=== PATIENT | female | born 1960 | race Caucasian/White ===

== ENCOUNTER 2019-11-29 12:49 | Outpatient (CLI) | payer BC, SELFPAY ==
--- NOTE | ~2019-11-29 | US_ITS ---
EXAMINATION: US soft tissue UE LT DATE: 11/29/2019 13:41 INDICATION: Left forearm lump. TECHNIQUE: Multiple grayscale and Doppler ultrasound images of the left forearm were obtained. COMPARISON: None FINDINGS: In the radial aspect of the left forearm, there is a 1.7 x 0.5 x 2.2 cm hyperechoic subcuta neous mass. IMPRESSION: 1. 2.2 cm subcutaneous mass in the radial aspect of the left forearm, most likely inflammation or a l ipoma. Reviewed, dictated and finalized at location A. UCT TEST ENGINEER IMPRESSION: 1. 2.2 cm subcutaneous mass in the radial aspect of the left forearm, most like ly inflammation or a lipoma.
== END 2019-11-29 12:50 | disposition home or self-care (01) ==
PROVIDERS: PCP Internal Medicine; Visit Provider Nurse Practitioner
DX: R22.30 Localized swelling, mass and lump, unspecified upper limb (principal)
CPT/HCPCS: 76882

== ENCOUNTER 2022-01-29 00:04 | Day surgery (SDC) | payer BC, SELFPAY ==
[2022-01-14 14:29] VITALS: BMI 24.5
[2022-01-29 07:11] VITALS: BP 138/93; PULSE 89; RESP 16; TEMP 36.2; O2SAT 100
[2022-01-29] MEDS: LACTATED RINGERS 1,000 ML 150 ML IV CONT (07:25)
--- NOTE | 2022-01-29 08:15 | WPDANESEPPF ---
Anes - Initial Pre Proc Eval Procedure: Operation Date: 01/29/22 08:30 Proposed Procedures p Screening Colonoscopy - Russel Carolina MD Date/Time: 01/29/22 08:15 Surgeon: Russel Carolina MD Pre Op Diagnosis: neoplasm screening Patient Data Age: 61 Gender: F Height: 1.73 m Weight: 70.8 kg Last Vital Signs Temp 97.2 F L 01/29/22 07:11 Pulse 89 01/29/22 07:11 Resp 16 01/29/22 07:11 BP 138/93 H 01/29/22 07:11 Pulse Ox 100 01/29/22 07:11 Allergies Allergy/AdvReac Type Severity Reaction Status Date / Time sulfamethoxazole Allergy Severe HIVES/DIFF Verified 01/29/22 07:10 BREATHING/NAUSEA ciprofloxacin Allergy Unknown Nausea Verified 01/29/22 07:10 sulfamethizole Allergy Unknown Nausea Verified 01/29/22 07:10 trimethoprim Allergy Unknown Nausea Verified 01/29/22 07:10 Home Medications Medication Instructions Recorded Confirmed Type sxpsoyfwxmqt-bbjhpbra-pmclnd tablet 1 tablet PO DAILY 11/01/19 01/14/22 History thyroid (pork) 60 mg tablet 60 mg PO DAILY #90 tablet 11/30/21 01/14/22 Rx denosumab [Prolia] 60 mg SUBCUT 01/14/22 History Patient hx anesthesia problems: none Family hx anesthesia problems: none Results Review: All pre-operative results and documents have been reviewed as part of the pre-operative evaluation. [facility] Past Medical History Medical History (Updated 11/29/21 @ 14:52 by Kelly Stiles NP) Cyst of breast Removed: benign H/O human papillomavirus infection History of fracture Hypothyroidism Osteoporosis Surgical History Surgical History H/O laparoscopy 1992 History of appendectomy 1969 Family History Family History Sibling Hypertension History of heart artery stent Father Heart disease Mother Pacemaker Social History Social History Smoking status: Never smoker Alcohol intake: current Alcohol use details: 2 per month Living arrangements: alone Spiritual care concerns: No Anes - Eval Final PreProcedure Day of Procedure 01/29/22 08:15 Patient weight: normal Heart: regular rate and rhythm Lungs: clear to auscultation Airway: Mallampati scale class II Neurological: alert and oriented Last oral intake: >/= 8 hours ASA classification: II Emergent: no Anesthetic plan: proceed Anesthesia type and monitoring: general GIVS and standard monitoring Results Review: All pre-operative results and documents have been reviewed as part of the pre-operative evaluation. Informed Consent: The patient's anesthetic plan and its attendant risks and benefits were discussed with the patient/family/POA. Questions were solicited and answers provided to the satisfaction of the patient/family/POA.
--- NOTE | 2022-01-29 08:19 | PM.HPGS ---
History of Present Illness History of Present Illness Consent: Risks, benefits, and alternatives have been discussed and questions answered. Patient agrees to proceed with procedure. Chief complaint: neoplasm screening Narrative: Clarisse Wilder is a 61 year old female here for screening colonoscopy, last one 10 years ago. Review of Systems Constitutional: Constitutional: Denies headache(s) and Denies weakness Eyes: Eyes: Denies blurry vision ENT: Reports Normal hearing present, Denies headache(s) and Denies neck pain Cardiovascular: Cardiovascular: Denies chest pain and Denies dyspnea Respiratory: Respiratory: Denies dyspnea Gastrointestinal: Gastrointestinal: Reports no additional gastrointestinal complaints Genitourinary: Genitourinary: Denies dysuria Musculoskeletal: Musculoskeletal: Denies neck pain Integumentary/Breasts: Skin/Breast: Denies dry skin Neurologic: Reports Normal hearing present, Denies headache(s) and Denies weakness Psychiatric: Psychiatric: Denies anxiety Endocrine: Endocrine: Denies change in body appearance Hematologic/Lymphatic: Hematologic/Lymphatic: Denies easy bleeding Allergic/Immunologic: Allergic/Immunologic: Denies urticaria PMFSH Past Medical History Medical History (Updated 11/29/21 @ 14:52 by Kelly Stiles NP) Cyst of breast Removed: benign H/O human papillomavirus infection History of fracture Hypothyroidism Osteoporosis Surgical History Surgical History H/O laparoscopy 1991 History of appendectomy 1968 Family History Family History Sibling Hypertension History of heart artery stent Father Heart disease Mother Pacemaker Social History Social History Smoking status: Never smoker Alcohol intake: current Alcohol use details: 2 per month Living arrangements: alone Spiritual care concerns: No Meds Home Medications and Allergies Home Medications Medication Instructions Recorded Confirmed Type rieolzmdtfbf-kruwpbhx-mpbicq tablet 1 tablet PO DAILY 11/01/19 01/14/22 History thyroid (pork) 60 mg tablet 60 mg PO DAILY #90 tablet 11/30/21 01/14/22 Rx denosumab [Prolia] 60 mg SUBCUT 01/14/22 History Allergies Allergy/AdvReac Type Severity Reaction Status Date / Time sulfamethoxazole Allergy Severe HIVES/DIFF Verified 01/29/22 07:10 BREATHING/NAUSEA ciprofloxacin Allergy Unknown Nausea Verified 01/29/22 07:10 sulfamethizole Allergy Unknown Nausea Verified 01/29/22 07:10 trimethoprim Allergy Unknown Nausea Verified 01/29/22 07:10 Vital Signs Vital Signs - 24 hr 01/29/22 07:11 Temperature 97.2 F L Pulse Rate 89 Respiratory Rate 16 Blood Pressure 138/93 H Pulse Oximetry 100 Exam Const: General: comfortable and no acute distress HENMT: General nose exam: Normal nares present Eyes: General: appearance normal, both eyes and all related structures Neck: Neck: no JVD Resp: Auscultation: clear to auscultation bilaterally Cardio: Rate: regular rate Rhythm: regular rhythm GI: Inspection: non-distended GI Palp: Yes Soft to palpation Skin: General skin exam: normal color Neuro: General: gait normal Speech: normal speech Extrem: General: normal to inspection Psych: Mental Status: mental status grossly normal Assessment and Plan Assessment and plan (1) Screening for colon cancer: Code(s): Z12.11 - Encounter for screening for malignant neoplasm of colon Status: Acute Assessment and Plan: colonoscopy
[2022-01-29 08:48] VITALS: BP 99/65; PULSE 78; RESP 14; O2SAT 99
[2022-01-29 08:58] VITALS: BP 104/66; PULSE 75; RESP 13; O2SAT 100
[2022-01-29 09:08] VITALS: BP 123/78; PULSE 68; RESP 13; O2SAT 99
== END 2022-01-29 09:14 | disposition home or self-care (01) ==
PROVIDERS: PCP Internal Medicine; Visit Provider Internal Medicine Gastroenterology
PROC: 0DJD8ZZ Inspection of Lower Intestinal Tract, Via Natural or Artificial Opening Endoscopic (ICD-10-PCS; CPT 45378; principal; 2022-01-29 08:30)
DX: Z12.11 Encounter for screening for malignant neoplasm of colon (principal); D12.5 Benign neoplasm of sigmoid colon; K64.8 Other hemorrhoids; E03.9 Hypothyroidism, unspecified; M81.0 Age-related osteoporosis without current pathological fracture
CPT/HCPCS: 45380; 88305; J2704; J7120

== ENCOUNTER 2022-04-03 11:17 | Outpatient (CLI) | payer BC, SELFPAY ==
--- NOTE | ~2022-04-03 | NM_ITS ---
EXAMINATION: NM hepatobiliary wo pharm DATE: 04/03/2022 15:54 CDT INDICATION: Right upper quadrant pain. Evaluate gallbladder. COMPARISON: None. TECHNIQUE: 5.1 mCi Tc-99m mebrofenin (Choletec) was administered intravenously. Scintigraphic images of the abdomen were obtained for one hour. At the 1 hour time point, the patient drank 8 oz Ensure, and imaging was continued for 60 minutes. Gallbladder ejection fraction was calculated by the technol ogjose. FINDINGS: There is normal clearance of radiotracer from the blood pool. There is homogeneous tracer u ptake by the liver. Activity progresses to the bowel and gallbladder. The gallbladder ejection fract ion is 28%. Note that with this technique, normal GBEF >= 33%. IMPRESSION: 1. Mildly diminished gallbladder ejection fraction which can be associated with gallbladder dysfunct ion or chronic cholecystitis in the appropriate clinical setting. Reviewed, dictated and finalized at location A. IMPRESSION: 1. Mildly diminished gallbladder ejection fraction which can be associated wit h gallbladder dysfunction or chronic cholecystitis in the appropriate clinical setting.
== END 2022-04-03 11:18 | disposition home or self-care (01) ==
LOC: ANHIMG 11:18
PROVIDERS: PCP Internal Medicine; Visit Provider Internal Medicine
DX: R10.9 Unspecified abdominal pain (principal)
CPT/HCPCS: 78226; A9537

== ENCOUNTER 2022-04-04 09:23 | Outpatient (CLI) | payer BC, SELFPAY ==
--- NOTE | ~2022-04-04 | US_ITS ---
US abdomen complete DATE: 04/04/2022 10:41 INDICATION: Abdominal pain TECHNIQUE: Real-time imaging and Doppler analysis COMPARISON: 04/03/2022 radionuclide hepatobiliary scan FINDINGS: Normal caliber of the abdominal aorta. The inferior vena cava is unremarkable. No hepatic space-occupying mass lesion is evident. Normal hepatopedal portal venous flow direction. No gallstones or gallbladder wall thickening. Negative sonographic Burton's sign. The common bile tarsha t measures 1.2 mm, normal. No renal mass lesion or hydronephrosis is evident. Normal splenic size. 1.4 x 6.5 x 1.2 cm circumscribed parallel hyperechoic lesion of the anterior abdominal wall in the ar ea of complaint of superficial lump, likely a benign lipoma. IMPRESSION: No significant abnormality Reviewed, dictated and finalized at Location A. Reviewed, dictated and finalized at location A. IMPRESSION: No significant abnormality
== END 2022-04-04 09:24 | disposition home or self-care (01) ==
PROVIDERS: PCP Internal Medicine; Visit Provider Nurse Practitioner
DX: R10.9 Unspecified abdominal pain (principal); R22.9 Localized swelling, mass and lump, unspecified
CPT/HCPCS: 76700

== ENCOUNTER → 2023-05-08 09:08 | Outpatient (CLI) | payer BC, SELFPAY ==
--- NOTE | ~2023-05-08 | US_ITS ---
EXAMINATION: US renal BI DATE: 05/08/2023 09:27 INDICATION: 1 cm probable renal cyst on prior CT. TECHNIQUE: Multiple ultrasound grayscale images of the kidneys were obtained. COMPARISON: Ultrasound dated 04/14/2022 FINDINGS: The right kidney measures 11.0 x 3.5 x 7.2 cm. The left kidney measures 10.4 x 4.9 x 6.6 cm. The kidn eys demonstrate normal echogenicity. There is no hydronephrosis in either kidney. No stones identifi ed. The bladder is normal. IMPRESSION: 1. Normal kidneys without hydronephrosis. Reported renal lesion is not identified. Recommend further evaluation with pre and postcontrast MRI or CT and correlation with any prior imaging. Reviewed, dictated and finalized at location L. IMPRESSION: 1. Normal kidneys without hydronephrosis. Reported renal lesion is not identif ied. Recommend further evaluation with pre and postcontrast MRI or CT and corre lation with any prior imaging.
== END ==
PROVIDERS: PCP Nurse Practitioner; Visit Provider Nurse Practitioner
DX: R93.422 Abnormal radiologic findings on diagnostic imaging of left kidney (principal); R93.421 Abnormal radiologic findings on diagnostic imaging of right kidney
CPT/HCPCS: 76775

== ENCOUNTER 2023-05-15 00:27 | Day surgery (SDC) | payer BC, SELFPAY ==
[2023-05-07 14:31] VITALS: BMI 22.8
--- NOTE | 2023-05-07 14:52 | SUR.PREOP ---
Report to the Outpatient Waiting Room, entrance under the green pavilion located off [facility], at time 1000 on date 05/15/2023. Planned Procedure Time: 1200. Time changes happen often and if your time is changed the preop area will call you the afternoon before. - You and your visitor will be asked to self-screen and do not enter if you have any COVID symptoms. - A mask is optional within the hospital at this time. Patients may have clear liquids (water, carbonated beverages, clear teas, apple juice) until 3 hours prior to surgery with a maximum of 20 ounces. - No food from midnight until time of surgery - Infants may have breast milk until 4 hours before surgery, infant formula 6 hours prior to surgery. - Children will be allowed to drink immediately following surgery. If applicable, please bring a bottle or sippy cup to assist with drinking. Juice, water, soda, and popsicles are readily available. For infants on formula, please bring formula the day of surgery. Pacifiers are allowed. Take the following medications with a SIP of water the morning of surgery: levothyroxine DO NOT STOP ANY OF YOUR OTHER PRESCRIPTION MEDICATIONS PRIOR TO SURGERY ?EXCEPT THE FOLLOWING Medications to discontinue per physician vitamins- 3 days Date to take last dose 05/11/2023 Please no make-up, nail kiswahili, hairspray, perfume, deodorant, or body powder the day of surgery. No jewelry (including any body piercings) or valuables the day of surgery, leave them at home. Please take a shower or bath the morning of surgery with an antibacterial soap- Hibiclens. Wear comfortable, loose fitting clothing. Children are encouraged to wear pajamas. - Jewelry must be removed prior to entering the operating room. Rings and piercings that are not removed may be cut off. - The hospital will not accept responsibility for valuables. - Please leave all valuables, including medications, at home the day of surgery. If you are going home after surgery, a licensed over the road driver must drive you home. - NO public transportation without another adult if you receive anesthesia. - We recommend that an adult stay with you for 24 hours following discharge. - We also recommend that you do not drive, make important decision, drink alcoholic beverages, or take any drugs that were not prescribed by your health care provider for at least 24 hours after your discharge time. For Pediatric surgeries, we recommend two adults accompany the child home. Follow any additional instructions given to you from your surgeon. If you or anyone in your household have experienced Covid symptoms in the past week, please notify your surgeon or the nurse liaison at the phone number below for possible testing. Telephone instructions given to patient- Donna and asked if any additional questions and then verbalized understanding. Patient advised to call surgeon office or pre surgery nurse liaison [phone] if any additional questions.
--- NOTE | 2023-05-15 08:15 | PM.SD2 ---
Same Day Admit/Disch: HPI History of Present Illness Chief complaint: Subcutaneous mass abdominal wall Narrative: Clarisse Wilder is a 62 year old female who 1st noticed a supraumbilical subcutaneous mass back in March of 2022. This has gotten larger. She had an ultrasound which showed this was a 6.5 cm subcutaneous lipoma. Due to its position, it could also be a small hernia. She is taken to surgery now for excision of this subcutaneous mass or possibly repair of small ventral hernia. [facility] Past Medical History Medical History Cyst of breast Removed: benign H/O human papillomavirus infection History of fracture Hypothyroidism Osteoporosis Surgical History Surgical History H/O laparoscopy 1991 History of appendectomy 1968 Family History Family History Sibling Hypertension History of heart artery stent Father Heart disease Mother Pacemaker Social History Social History Smoking status: Never smoker Alcohol intake: current Alcohol use details: 1 per month Lack of Transportation: No Lack of Food: Never True Current Housing: I Have Housing Concerned About Future Housing: No Difficulty Paying Gas/Electric Bills: No Difficulty Paying for Meds: No Currently Unemployed: No Education: Bachelor's Degree Difficulty w/ Childcare or Family Care: No Living arrangements: alone Spiritual care concerns: No Same Day Admit/Disch: Med Pre-admit Medications Home Medications Medication Instructions Recorded Confirmed Type lqerfifenrdf-udxmsmzm-ufyyow 1 tablet PO DAILY 11/01/19 05/15/23 History tablet (Multivitamin 50 Plus tablet) denosumab 60 mg/mL subcutaneous See Rx Instructions .Route .COMPLEX 01/14/22 05/15/23 History syringe (Prolia) levothyroxine 88 mcg tablet 88 mcg PO DAILY #90 tabs 03/24/23 05/15/23 Rx oxycodone-acetaminophen 5 mg-325 0.5 - 1 tablet PO Q6H PRN pain #10 05/15/23 Rx mg tablet tabs Review of Systems Review of Systems All systems reviewed & are unremarkable except as noted in HPI and below (HPI and those items noted below) Constitutional Constitutional: Denies chills and Denies fever(s) Cardiovascular Cardiovascular: Denies chest pain, Denies diaphoresis, Denies dyspnea and Denies paroxysmal nocturnal dyspnea Respiratory Respiratory: Denies chest congestion, Denies cough and Denies dyspnea Integumentary/Breasts Skin/Breast: Denies lesions and Denies rash Exam Const: General: comfortable, no acute distress, alert and awake HENMT: Head: normocephalic and atraumatic Mouth: Yes Normal oral and palatal mucosa present Eyes: Conjunctivae: conjunctivae normal Pupils: Equal, round and reactive pupils present EOM: EOMs intact bilaterally Neck: Neck: normal visual inspection, no lymphadenopathy and nontender Resp: Effort & Inspection: normal respiratory effort Auscultation: clear to auscultation bilaterally Cardio: Rate: regular rate Rhythm: regular rhythm Heart sounds: no gallops, no murmurs and no rubs GI: Inspection: non-distended and other (Subcutaneous mass about alf between the xiphoid and the umbilicus) GI Palp: Yes Soft to palpation, No Tenderness to palpation present (GI), No Guarding due to palpation present (GI), No Hepatomegaly present, No Splenomegaly present, Yes Palpable mass present (2.5 cm subcutaneous mass in the location described above) and No Rebound tenderness present Skin: Lesions: no lesions Rashes: no rashes Neuro: General: no focal motor deficits and CN's II-XI intact bilaterally Cranial nerves: Yes Equal, round and reactive pupils present, Yes Bilaterally intact EOM present, Yes facial symmetry and Yes Midline tongue present Speech: normal speech Motor exam (neuro): 5/5 motor strength pres
[2023-05-15 10:34] VITALS: BP 158/80; PULSE 74; RESP 16; TEMP 36.2; O2SAT 99
[2023-05-15] MEDS: ACETAMINOPHEN 500 MG TABLET 1000 MG PO (11:01)
--- NOTE | 2023-05-15 11:33 | WPDANESEPPF ---
Anes - Initial Pre Proc Eval Procedure: Operation Date: 05/15/23 12:00 Proposed Procedures p Excision Subcutaneous Abdominal Mass,Possible Ventral hernia Repair - Vinh James MD Date/Time: 05/15/23 11:33 Surgeon: Vinh James MD Pre Op Diagnosis: Subcutaneous mass abdominal wall Patient Data Age: 62 Gender: F Height: 1.74 m Weight: 70.2 kg Last Vital Signs Temp 36.2 C L 05/15/23 10:34 Pulse 74 05/15/23 10:34 Resp 16 05/15/23 10:34 BP 158/80 H 05/15/23 10:34 Pulse Ox 99 05/15/23 10:34 O2 Del Method Room Air 05/15/23 10:34 Allergies Allergy/AdvReac Type Severity Reaction Status Date / Time sulfamethoxazole Allergy Severe HIVES/DIFF Verified 05/15/23 10:12 BREATHING/NAUSEA ciprofloxacin AdvReac Unknown Nausea Verified 05/15/23 10:12 sulfamethizole AdvReac Unknown Nausea Verified 05/15/23 10:12 trimethoprim AdvReac Unknown Nausea Verified 05/15/23 10:12 Home Medications Medication Instructions Recorded Confirmed Type hhcomovdgdhd-mcxhejno-dsnfeq 1 tablet PO DAILY 11/01/19 05/15/23 History tablet (Multivitamin 50 Plus tablet) denosumab 60 mg/mL subcutaneous See Rx Instructions .Route .COMPLEX 01/14/22 05/15/23 History syringe (Prolia) levothyroxine 88 mcg tablet 88 mcg PO DAILY #90 tabs 03/24/23 05/15/23 Rx Patient hx anesthesia problems: post op nausea/vomiting Family hx anesthesia problems: post op nausea/vomiting Results Review: All pre-operative results and documents have been reviewed as part of the pre-operative evaluation. [facility] Past Medical History Medical History Cyst of breast Removed: benign H/O human papillomavirus infection History of fracture Hypothyroidism Osteoporosis Surgical History Surgical History H/O laparoscopy 1991 History of appendectomy 1968 Family History Family History Sibling Hypertension History of heart artery stent Father Heart disease Mother Pacemaker Social History Social History Smoking status: Never smoker Alcohol intake: current Alcohol use details: 1 per month Lack of Transportation: No Lack of Food: Never True Current Housing: I Have Housing Concerned About Future Housing: No Difficulty Paying Gas/Electric Bills: No Difficulty Paying for Meds: No Currently Unemployed: No Education: Bachelor's Degree Difficulty w/ Childcare or Family Care: No Living arrangements: alone Spiritual care concerns: No Anes - Eval Final PreProcedure Day of Procedure 05/15/23 11:33 Patient weight: normal Heart: regular rate and rhythm Lungs: clear to auscultation Airway: Mallampati scale class II Neurological: alert and oriented Last oral intake: >/= 8 hours ASA classification: II Emergent: no Anesthetic plan: proceed Anesthesia type and monitoring: general LMA and standard monitoring Results Review: All pre-operative results and documents have been reviewed as part of the pre-operative evaluation. Informed Consent: The patient's anesthetic plan and its attendant risks and benefits were discussed with the patient/family/POA. Questions were solicited and answers provided to the satisfaction of the patient/family/POA.
--- NOTE | 2023-05-15 11:51 | WPDHPUPDATE1 ---
History and Physical Update Update Date/Time: 05/15/23 11:51 History and Physical has been reviewed, including an updated exam of the patient. There are NO changes in the patient's condition. Risks, benefits, and alternatives have been discussed and questions answered. Patient agrees to proceed with procedure.
[2023-05-15] MEDS: ceFAZolin 2 GM/D5W 50 ML 2 GM/50 ML BAG IVPB (11:54)
[2023-05-15 12:33] VITALS: BP 122/65; PULSE 73; RESP 20
[2023-05-15] MEDS: LACTATED RINGERS 1,000 ML 30 ML IV CONT (12:33)
[2023-05-15] MEDS: BUPIVACAINE/EPINEPHRINE 0.5% 50 ML VIAL 30 ML INFILTRATE (12:36)
--- NOTE | 2023-05-15 12:53 | W.PM.PROC2 ---
Procedure Note - Detailed Date of Procedure 05/15/23 Pre-op Diagnosis Subcutaneous mass abdominal wall Post-op Diagnosis Other (Incisional hernia) Procedure Performed Repair incisional hernia with 5 mm defect Surgeon Vinh James MD Anesthesia MAC and Local (0.5% Marcaine with epinephrine) Indications Patient has a subcutaneous mass in the mid abdomen just below a previous scar from liver biopsy as a young child. By palpation this was a 2.5 cm mass. She had an ultrasound that suggested it was a lipoma and 6.5 cm in size. She is taken to surgery now for excision of the lipoma or if a small ventral hernia, repair of the ventral hernia. Findings Ventral hernia with a large chronically incarcerated hernia sac. The hernia defect was only 5 mm in diameter. Description of Procedure Patient was checked in the preoperative holding area. The proposed incision was marked on the skin in the area of the previous transverse scar. She was then taken to surgery and IV sedation was administered. Local anesthetic was infiltrated in the area of the anticipated incision as well as in the subcutaneous all around the mass. Incision was made and dissected down to the subcutaneous. I then dissected slightly cephalad to the apex of the subcutaneous mass. I then dissected all around the mass and as I was freeing it from the abdominal wall fascia, it was clear that this was a hernia with a small abdominal wall defect. Eventually I dissected the hernia sac out completely and amputated it from the hernia defect. The sac was sent as a specimen. The hernia defect itself was small as noted above. I infiltrated local anesthetic into the fascia all around the defect and into the subcutaneous around the wound. The defect was closed with a single ecvuvs-uk-smvqd mattress suture of 0 Ethibond. The subcutaneous was closed with interrupted 3-0 Vicryl suture. The skin was closed with subcuticular interrupted 4-0 Vicryl skin suture. Wound was dressed with Exofin surgical adhesive. Patient was awakened and taken to outpatient recovery in good condition. Sponge needle counts were correct x2. Estimated Blood Loss -5 Drains No Packing No Pathology None sent Complications No immediate complications Condition Stable Disposition Same day [facility] Billing Surgery - Charge Forward: Surgery Billing (Repair of ventral hernia with 5 mm defect)
[2023-05-15 13:00] VITALS: BP 122/65; PULSE 73; RESP 20
[2023-05-15 13:30] VITALS: BP 123/71; PULSE 68; RESP 20
[2023-05-15 13:55] VITALS: BP 142/94; PULSE 74; RESP 20
== END 2023-05-15 13:59 | disposition home or self-care (01) ==
PROVIDERS: PCP Nurse Practitioner; Visit Provider Surgery
PROC: 0WQF0ZZ Repair Abdominal Wall, Open Approach (ICD-10-PCS; CPT 49592; principal; 2023-05-15 12:00)
DX: K43.9 Ventral hernia without obstruction or gangrene (principal); D17.1 Benign lipomatous neoplasm of skin and subcutaneous tissue of trunk; E03.9 Hypothyroidism, unspecified; M81.0 Age-related osteoporosis without current pathological fracture
CPT/HCPCS: 49592; 88302; A9270; J0690; J2704; J3010; J7120

== ENCOUNTER 2024-02-12 13:08 | Emergency (ER) | payer BC, SELFPAY ==
[2024-02-12 13:18] VITALS: BP 144/88; PULSE 73; RESP 18; TEMP 36.2; O2SAT 99
--- NOTE | 2024-02-12 13:32 | ED.FEMALEGU ---
HPI - Female Genitourinary General Chief complaint: Urogenital-Female Stated complaint: UTI symptoms Time Seen by Provider: 02/12/24 13:28 Source: patient and RN notes reviewed Mode of arrival: ambulatory Limitations: no limitations History of Present Illness HPI Narrative: Patient presents today complaining of a 2 week history of urinary frequency, urgency, dysuria, and suprapubic pressure. Denies fever, nausea vomiting, sweats or chills, or any additional symptoms. She has been taking azo with some mild relief. Related Data Home Medications Medication Instructions Recorded Confirmed sftfaqlkzyvd-bthxpllr-hllnza 1 tablet PO DAILY 11/01/19 12/17/23 tablet (Multivitamin 50 Plus tablet) denosumab 60 mg/mL subcutaneous See Rx Instructions .Route .COMPLEX 01/14/22 12/17/23 syringe (Prolia) omega-3 fatty acids 1,000 mg 1,000 mg PO BID 12/17/23 12/17/23 capsule Allergies Allergy/AdvReac Type Severity Reaction Status Date / Time sulfamethoxazole Allergy Severe HIVES/DIFF Verified 02/12/24 13:21 BREATHING/NAUSEA ciprofloxacin AdvReac Unknown Nausea Verified 02/12/24 13:21 sulfamethizole AdvReac Unknown Nausea Verified 02/12/24 13:21 trimethoprim AdvReac Unknown Nausea Verified 02/12/24 13:21 Review of Systems Review of Systems: CONSTITUTIONAL: Denies body aches, fever, chills, or sweats. EYES: Denies visual changes, redness, or discharge. ENT: Denies rhinorrhea, congestion, sore throat, or otalgia. CARDIOVASCULAR: Denies chest pain, palpitations, or edema. RESPIRATORY: Denies cough or dyspnea. GASTROINTESTINAL: Denies abdominal pain, nausea, vomiting, or diarrhea. GENITOURINARY: + dysuria, urgency, frequency, suprapubic pressure SKIN: Denies rash, itching, or wounds. MUSCULOSKELETAL: Denies back pain, joint pain, or myalgia. NEUROLOGIC: Denies headache, numbness, tingling, or weakness. PSYCH: Denies depression or anxiety. [facility] Past Medical History Medical History Cyst of breast Removed: benign H/O human papillomavirus infection History of fracture Hypothyroidism Osteoporosis Surgical History Surgical History H/O laparoscopy 1991 History of appendectomy 1968 History of incisional hernia repair 05/15/23 Repair incisional hernia with 5 mm defect Family History Family History Sibling Hypertension History of heart artery stent Father Heart disease Mother Pacemaker Social History Social History Smoking status: Never smoker Alcohol intake: current Alcohol use details: 1 per month Lack of Transportation: No Lack of Food: Never True Current Housing: I Have Housing Concerned About Future Housing: No Difficulty Paying Gas/Electric Bills: No Difficulty Paying for Meds: No Currently Unemployed: No Education: Bachelor's Degree Difficulty w/ Childcare or Family Care: No Living arrangements: alone Spiritual care concerns: No Comments At time of signature, I have reviewed and agree with nursing past medical, surgical, social and family history unless otherwise noted. Please see nursing chart for further information. There is no relevant family history pertinent to the presenting complaint Exam Narrative: GENERAL: Well-appearing, well-nourished, and in no acute distress. HEAD: Normocephalic, atraumatic. EYES: EOMI. No redness or drainage. Conjunctivae normal. ENT: Mucous membranes pink and moist. NECK: Normal AROM. CHEST: No respiratory distress. Clear to auscultation. HEART: Regular rate and rhythm. No murmur appreciated. ABDOMEN: Soft, nontender, nondistended, normal active bowel sounds.-CVAT EXTREMITIES: Normal range of motion. No edema. SKIN: Warm, dry, no rash. Capillary refill normal. Normal skin turgor.
== END 2024-02-12 13:37 | disposition home or self-care (01) ==
PROVIDERS: Emergency Provider Nurse Practitioner; PCP Internal Medicine
DX: N30.01 Acute cystitis with hematuria (principal); E03.9 Hypothyroidism, unspecified; M81.0 Age-related osteoporosis without current pathological fracture
CPT/HCPCS: 81003; 87086; 99213; G0463

== ENCOUNTER 2024-06-17 11:06 | Outpatient (CLI) | payer MEDICARE, OTHER, SELFPAY ==
[2024-06-17 11:33] LABS: Basophils Percent Auto 0.3 % (0.2-1.2); Eosinophils Absolute Auto 0.1 K/mm3 (0-0.3); Eosinophils Percent Auto 1.1 % (0-4.4); Hemoglobin 15.3 g/dL (12.0-15.0); Immature Granulocyte Absolute 0.02 K/mm3 (0.00-0.031); Immature Granulocyte Percent A 0.3 % (0-0.5); Lymphocytes Absolute Auto 1.19 K/mm3 (0.9-3.2); Lymphocytes Percent Auto 18.5 % (18.3-44.2); Mean Corpuscular HGB Conc 33.3 g/dl (32-36); Mean Corpuscular Volume 87.1 fl (80-100); Mean Platelet Volume 9.3 fl (7.4-10.4); Monocytes Absolute Auto 0.6 K/mm3 (0.1-0.6); Monocytes Percent Auto 9.6 % (2.6-8.5); Neutrophils Absolute Auto 4.5 K/mm3 (1.3-6.7); Neutrophils Percent Auto 70.2 % (45.5-73.1); Platelet Count Result 126 k/mm3 (150-375); Red Blood Count 5.28 M/mm3 (4.2-5.4); Red Cell Distribution Width 13.1 % (11.5-14.5); White Blood Count 6.4 K/mm3 (4.5-10.0)
[2024-06-17 13:28] LABS: Iron 101 ug/dL (37-170)
[2024-06-17 13:38] LABS: Alanine Aminotransferase 33 U/L (6-35); Alkaline Phosphatase 45 U/L (38-126); Anion Gap 7 mmol/L (4-12); Aspartate Amino Transferase 39 U/L (14-36); Bilirubin,Total 0.9 mg/dL (0.2-1.3); Blood Urea Nitrogen 16 mg/dL (7-17); Calcium 9.8 mg/dL (8.4-10.2); Carbon Dioxide 30 mmol/L (22-30); Chloride 98 mmol/L (98-107); Estimated Glomerular Filt Rate > 60; Glucose 92 mg/dL (65-110); Potassium 4.1 mmol/L (3.4-5.0); Sodium 135 mmol/L (137-145)
[2024-06-17 13:43] LABS: Percent Iron Saturation 32 % (20-50)
[2024-06-17 15:02] LABS: Folic Acid > 20.0 ng/mL (2.76->20)
[2024-06-22 23:49] LABS: Platelet Antibody, Direct NEGATIVE (NEGATIVE)
[2024-06-25 12:43] LABS: Methylmalonic Acid 111 nmol/L (69-390)
[2024-06-25 13:39] LABS: Soluble Transferrin Receptor 1.51 mg/L (0.76-1.76)
== END 2024-06-17 11:07 | disposition home or self-care (01) ==
PROVIDERS: PCP Internal Medicine; Visit Provider Internal Medicine Hematology & Oncology
DX: D64.9 Anemia, unspecified (principal)
CPT/HCPCS: 36415; 80053; 82607; 82728; 82746; 83540; 83550; 83921; 84238; 85025; 86023

== ENCOUNTER 2024-06-24 08:29 | Outpatient (CLI) | payer MEDICARE, SELFPAY ==
--- NOTE | ~2024-06-24 | US_ITS ---
COMPLETE ABDOMINAL ULTRASOUND Ordering provider: Jcarlos Cervantes MD History: . PRIMARY THROMBOCYTOPENIA . Comparison: None. FINDINGS: LIVER: Normal size and echotexture. No focal hepatic lesions or perihepatic fluid collections are luann ntified. Portal vein flow is normal. GALLBLADDER: Distended. Unremarkable. No evidence for stones, sludge, gallbladder wall thickening or pericholecystic fluid collections. The wall thickness is 0.2 cm. A negative sonographic Burton's sign was noted. BILIARY DUCTS: No evidence for intra or extrahepatic biliary dilation. Common bile duct measures 2.3 mm in diameter which is within normal limits. PANCREAS: Partially visualized. Otherwise, Normal echotexture and size. SPLEEN: Normal size, echotexture and contour and measures 12 cm in length. KIDNEYS: Right measures 11.6x 4x 6.3 cm in length and the left 11.2x 4.1x 4.3 cm in length. There is no evidence for hydronephrosis, solid renal mass, renal calculi or perinephric fluid collections. No renal cysts. UPPER ABDOMINAL AORTA: Normal in caliber. IVC: Patent. FREE FLUID: None. IMPRESSION: Unremarkable complete ultrasound of the abdomen. Reviewed, dictated and finalized at location A.
== END 2024-06-24 08:30 | disposition home or self-care (01) ==
LOC: ANHIMG 08:33
PROVIDERS: PCP Internal Medicine; Visit Provider Internal Medicine Hematology & Oncology
DX: D69.49 Other primary thrombocytopenia (principal)
CPT/HCPCS: 76700

== ENCOUNTER 2024-12-30 13:17 | Outpatient (CLI) | payer MEDICARE, SELFPAY ==
[2024-12-30 13:30] LABS: Basophils Percent Auto 0.5 % (0.2-1.2); Eosinophils Absolute Auto 0.1 K/mm3 (0-0.3); Eosinophils Percent Auto 1.2 % (0-4.4); Hemoglobin 14.2 g/dL (12.0-15.0); Immature Granulocyte Absolute 0.01 K/mm3 (0.00-0.031); Immature Granulocyte Percent A 0.2 % (0-0.5); Lymphocytes Absolute Auto 1.28 K/mm3 (0.9-3.2); Lymphocytes Percent Auto 22.1 % (18.3-44.2); Mean Corpuscular HGB Conc 33.8 g/dl (32-36); Mean Corpuscular Hemoglobin 29.1 pg (26-34); Mean Corpuscular Volume 86.1 fl (80-100); Mean Platelet Volume 9.2 fl (7.4-10.4); Monocytes Absolute Auto 0.6 K/mm3 (0.1-0.6); Monocytes Percent Auto 10.2 % (2.6-8.5); Neutrophils Absolute Auto 3.8 K/mm3 (1.3-6.7); Neutrophils Percent Auto 65.8 % (45.5-73.1); Platelet Count Result 150 k/mm3 (150-375); Red Blood Count 4.88 M/mm3 (4.2-5.4); Red Cell Distribution Width 13.1 % (11.5-14.5); White Blood Count 5.8 K/mm3 (4.5-10.0)
[2024-12-30 13:34] LABS: Blood Urea Nitrogen 21 mg/dL (8-26); Carbon Dioxide 28 mmol/L (22-30); Chloride 103 mmol/L (98-109); Estimated Glomerular Filt Rate 50; Glucose 87 mg/dL (70-105); Ionized Calcium (POC) 1.25 mmol/L (1.11-1.31); Potassium 3.8 mmol/L (3.5-4.9); Sodium 143 mmol/L (138-146)
--- OUTSIDE RECORDS SUMMARY | 2024-12-30 13:37 | XMS_ITS | Clinical Summary ---
Author Organization [facility] Address [address] [place] [address] Care Team Providers Care Administrator Social Welfare Name Role Phone Kelly Stiles NP Primary Care Provider [phone] Social History Tobacco Use Types Packs/Day Years Used Date Smoking Tobacco: Never Assessed Personal Safety Answer Date Recorded Getting School Help Needed Not on file 05/05 Comments Unknown Sex and Gender Information Value Date Recorded Sex Assigned at Not on file Legal Sex Female 12:00 AM GRAVITY PROSPECTING OBSERVER Gender Identity Not on file Sexual Orientation Not on file Plan of Treatment Health Maintenance Due Date Last Done Comments Cervical Cancer Screening 1959 Colon Cancer Screening-Colonoscopy 1959 Depression Screening 1959 Fall Risk Assessment 1959 Hepatitis C Screening 1959 Osteoporosis Screening-Bone Density Scan 1959 Pneumococcal vaccine 65+ (1 of 1 - PCV) 2009 Zoster Vaccine (1 of 2) 2009 Covid-19 Vaccine (2023-2 5 season) 2024 07/02/2022, 08/22/2021, 12/29/2020, Additional history exists Well Visit 65+ 2024 Breast Cancer Screening-Mammogram 12/29/2024 12/30/2023, 12/30/2023, 11/19/2022, Additional history exists Influenza Vaccine (Season Ended) 2025 06/24/2023, 07/02/2022, 07/17/2021, Additional history exists DTaP/Tdap/Td Vaccine (2 - Td or Tdap) 05/05/2030 05/05/2020, 04/22/2003 Hepatitis B Screening Completed 11/19/2020, 020 Insurance MEDICARE [employer] SENIOR SUPPLEMENT Care Teams Administrator Social Welfare Relationship Specialty Start Date End Date Kelly Stiles NP [facility] [facility] [address] PCP - General Internal Medicine 05/06/24
--- OUTSIDE RECORDS SUMMARY | 2024-12-30 13:37 | XMS_ITS | Clinical Summary ---
Author Organization [facility] Address [address] [place] [address] Care Team Providers Care Sandstone Inspector Repairer Name Role Phone Abdulaziz Neil DO Primary Care Provider [phone] Allergies Active Allergy Reactions Criticality Noted Date Comments Ciprofloxacin Rash Medium 02/13/2023 Sulfamethoxazole-Trimethoprim Rash Medium 2022 Medications levothyroxine (SYNTHROID) 88 MCG tablet Take 1 tablet (88 mcg total) by mouth every morning. Active Active Problems Problem Noted Date Diagnosed Date Senile osteoporosis 11/21/2021 Encounters Date Type Department Care Team Description 11/29/2024 10:11 AM FIELD MAP EDITOR - 11/29/2024 11:59 PM FIELD MAP EDITOR Hospital Encounter [facility] Diagnostic Imaging [address] [place] [address] Emil Mercado MD Discharge Disposition: Home or Self Care (Routine Discharge) 11/29/2024 Travel from Last 3 Months Social History Tobacco Use Types Packs/Day Years Used Date Smoking Tobacco: Never Smokeless Tobacco: Never Tobacco Cessation:Counseling Given: Not Answered Alcohol Use Standard Drinks/Week Comments Not Currently 0 (1 standard drink = 0.6 oz pur e alcohol) Comments No Sex and Gender Information Value Date Recorded Sex Assigned at Not on file Legal Sex Female 5:35 PM CDT Gender Identity Female 10/26/2021 4:46 AM FIELD MAP EDITOR Sexual Orientation Straight 10/26/2021 4: 46 AM FIELD MAP EDITOR Last Filed Vital Signs Vital Sign Reading Time Taken Comments Blood Pressure 127/69 07/05/2024 8:01 AM CDT Pulse 74 07/05/2024 8:01 AM CDT Temperature 36.9 C (98.5 F) 07/05/2024 8:01 AM CDT Respiratory Rate 16 07/05/2024 8:01 AM CDT Oxygen Saturation 98% 07/05/2024 8:01 AM CDT Inhaled Oxygen Concentration - - Weight 68 kg (150 lb) 02/13/2023 7:48 AM CDT Height 172.7 cm (5' 8 ) 02/13/2023 7:48 AM CDT Body Mass Index 22.81 02/13/2023 7:48 AM CDT Plan of Treatment Upcoming Encounters Date Type Department Care Team (Late st Contact Info) Description 01/03/2025 1:[address] [facility] Mammography [address] [place] [address] Emil Mercado MD [address] [place] [address] Health Maintenance Due Date Last Done Comments Hepatitis C 1977 Zoster Vaccines (1 of 2) 2009 Colorectal Cancer Screening Colonoscopy (10 Years) 08/29/2022 08/29/2012 COVID-19 Vaccine ( - season) 2024 Pneumococcal Vaccine: 65+ Years (1 of 1 - PCV) 2024 Influenza Adult (#1) 2024 06/21/2020 Mammogram Screening 12/29/2025 12/30/2023, 11/19/2022, 10/26/2021, Additional history exists DTaP, Tdap and Td Vaccines (2 - Td or Tdap) 05/05/2030 05/05/2020 RSV Immunization or 60+ Years (1 - 1-dose 75+ series) 2034 Dexa Scan (General) Completed 11/29/2024, 11/21/2023, 11/19/2022, Additional history exists Meningococcal B Vaccine Aged Out No l onger eligible based on patient's age to complete this topic Meningococcal Vaccine Aged Out No leanne zackary eligible based on patient's age to complete this topic Pneumococcal Vaccine: Pediatrics (0 to 5 Years) and At-Risk Patients (6 to 64 Years) Aged Out No longer eligible based on patient's age to complete this topic RSV Immunizations Under 20 Months Aged Out No longer eligible based on patient's age to complete this topic Procedures Procedure Name Priority Date/Time Associated Diagnosis Comments BONE DENSITY/DEXA Routine 11/29/2024 10: 38 AM FIELD MAP EDITOR Postmenopausal MG SCREENING W LORY FINESSE DIGI Routine 12/30/2023 3:01 PM CDT Encounter for screening mammogram for malignant neoplasm of breast COLONOSCOPY Routine 08/29/2012 12:00 AM FIELD MAP EDITOR from Last 3 Months or Most Recently Relevant to Health Maintenance Results * BONE DENSITY/DEXA (11/29/2024 10:38 AM FIELD MAP EDITOR) Anatomical Region Laterality Modality Bone Bone Density 11/29/2024 10:3 3 AM FIELD MAP EDITOR Impressions 11/29/2024 10:35 AM FIELD MAP EDITOR IMPRESSION: 1. WHO Classification: Osteopenia. 2. Significant interval increase in bone mineral density. RECOMMENDATIONS: All patients should ensure an adequate intake of dietary calcium and vitamin D. The NOF recommend adults under the age of 50 need 1000 mg of calcium and 400-800 IU of vitamin D daily. Effective therapy for the prevention and treatment of osteoporosis include bisphosphonates. FOLLOW-UP: People with diagnosed cases of osteoporosis or at high risk for fracture should have regular bone mineral density test. For patients eligible for Medicare, routine testing is allowed once every 2 years. Testing frequency can be increased to one year for patients who have rapidly progressing disease, those who are receiving or discontinuing medical therapy to restore bone mass, or have additional risk factors. Ordered By: EMIL MERCADO Interpreted By: Bryce Sandoval, 11/29/2024 10:33 AM Narrative 11/29/2024 10:35 AM FIELD MAP EDITOR [facility] [address] [place] [address] EXAMINATION: BONE DENSITY/DEXA INDICATIONS: Asymptomatic menopausal state COMPARISON: 11/21/2023 TECHNIQUE: DEXA bone mineral density evaluation was performed in the AP projection over the lumbar spine and both hips utilizing standard imaging techniques. FINDINGS: The BMD measured at the AP spine L1-L4 is 0.809 g/cm? with a T-score of -2.2 (previously 0.801 g/cm? with a T-score of 2.2). The BMD measured at the left femoral neck is 0.650 g/cm? with a T-score of -1.8 (previously 0.621 g/cm? with a T-score of -2.1). The BMD measured at the left hip is 0.785 g/cm? with a T-score of -1.3 (previously 0.740 g/cm? with a T-score of -1.7). The BMD measured at the right femoral neck is 0.630 g/cm? with a T-score of -2.0 (previously 0.651 g/cm? with a T-score of -1.8). The BMD measured at the right hip is 0.716 g/cm? with a T-score of -1.9 (previously 0.685 g/cm? with a T-score of -2.1). FRAX 10-year fracture risk: Not calculated: Patient treated for osteoporosis. Procedure Note Bryce Sandoval MD - 11/29/2024 [place] [address] EXAMINATION: BONE DENSITY/DEXA INDICATIONS: Asymptomatic menopausal state COMPARISON: 11/21/2023 TECHNIQUE: DEXA bone mineral density evaluation was performed in the APprojection over the lumbar spine and both hips utilizing standard imagingtechniques. FINDINGS: The BMD measured at the AP spine L1-L4 is 0.809 g/cm? with a T-score of-2.2 (previously 0.801 g/cm? with a T-score of 2.2). The BMD measured at the left femoral neck is 0.650 g/cm? with a T-score of-1.8 (previously 0.621 g/cm? with a T-score of -2.1). The BMD measured at the left hip is 0.785 g/cm? with a T-score of - 1.3(previously 0.740 g/cm? with a T-score of -1.7). The BMD measured at the right femoral neck is 0.630 g/cm? with a T-scoreof -2.0 (previously 0.651 g/cm? with a T-score of -1.8). The BMD measured at the right hip is 0.716 g/cm? with a T-score of - 1.9(previously 0.685 g/cm? with a T-score of -2.1). FRAX 10-year fracture risk: Not calculated: Patient treated for osteoporosis. IMPRESSION: 1. WHO Classification: Osteopenia. 2. Significant interval increase in bone mineral density. RECOMMENDATIONS: All patients should ensure an adequate intake of dietary calcium andvitamin D. The NOF recommend adults under the age of 50 need 1000 mg ofcalcium and 400-800 IU of vitamin D daily. Effective therapy for theprevention and treatment of osteoporosis include bisphosphonates. FOLLOW-UP: People with diagnosed cases of osteoporosis or at high risk for fractureshould have regular bone mineral density test. For patients eligible forMedicare, routine testing is allowed once every 2 years. Testing frequencycan be increased to one year for patients who have rapidly progressingdisease, those who are receiving or discontinuing medical therapy torestore bone mass, or have additional risk factors. Ordered By: EMIL MERCADO Interpreted By: Bryce Sandoval, 11/29/2024 10:33 AM us Emil Mercado MD DEXA Final Resul t * MG SCREENING W LORY FINESSE DIGI (12/30/2023 3:01 PM CDT) Anatomical Region Laterality Modality Breast Bilateral Mammography 01/01/2024 11:3 7 AM CDT Narrative 01/01/2024 11:38 AM CDT Examination: Screening bilateral mammogram Exam Date/Time: 12/30/2023 2:53 PM Clinical history: No current complaints. Benign left biopsy many years ago Comparison: 11/19/2022 Technique: Digital screening mammography of both breasts was performed. Breast tomosynthesis acquisitions were obtained and reviewed. This study was read with the assistance of a computer-aided detection system. Tissue density: There are scattered areas of fibroglandular density. Findings: No suspicious masses, malignant appearing calcifications, skin thickening or other abnormalities are present. No significant change from the prior exam. IMPRESSION: No suspicious mammographic findings. Recommendation: 1. Routine Screening, Bilateral Assessment: ACR BI-RADS 2 - BENIGN FINDING(S) Ordered By: EMIL MERCADO Interpreted By: Sergey Dye, 01/01/2024 11:37 AM us Emil Mercado MD MAMMO Final Resul t * Colonoscopy (08/29/2012 12:00 AM FIELD MAP EDITOR) 08/29/2012 08/29/2012 Narrative [facility] TO EPIC CONVERSION - 08/29/2012 12:00 AM FIELD MAP EDITOR Documented hx of procedure Procedure Note , Generic Conversion, - 08/02/2018 Documented hx of procedure us Generic Conversion Md [facility] PROCEDURE ORDERABLES Final Result [facility] TO EPIC CONVERSION from Last 3 Months or Most Recently Relevant to Health Maintenance Insurance [facility] MEDICARE AETNA Care Teams Sandstone Inspector Repairer Relationship Specialty Start Date End Date Abdulaziz Neil DO [address] [facility] [address] [place] [address] PCP - General INTERNAL MEDICINE 02/13/23
--- OUTSIDE RECORDS SUMMARY | 2024-12-30 13:37 | XMS_ITS | Encounter Summary ---
Author Organization [facility] Address [address] [place] [address] Care Team Providers Care Draw Bench Operator Helper Name Role Phone None, Provider Primary Care Provider Abdulaziz Mcgowan DO Primary Care Provider [phone] Encounter Details Date Type Department Care Team (Late Contact Info) Description 11/21/2021 Therapy Plan [facility] [address] [place] [address] Ellie Nava MD [address] [place] [address] Social History Tobacco Use Types Packs/Day Years Used Date Smoking Tobacco: Never Assessed Comments Unknown Sex and Gender Information Value Date Recorded Sex Assigned at Not on file Legal Sex Female 5:35 PM CDT Gender Identity Female 10/26/2021 4:46 AM ADMINISTRATION ASSISTANT Sexual Orientation Straight 10/26/2021 4: 46 AM ADMINISTRATION ASSISTANT COVID-19 Exposure Response Date Recorded In the last month, have you been in contact with someone who was confirmed or suspected to have Coronavirus / COVID-19? No / Unsure 10/25/2021 6:57 PM ADMINISTRATION ASSISTANT documented as of this encounter Plan of Treatment Upcoming Encounters Date Type Department Care Team (Late Contact Info) Description 01/03/2025 1:30 PM CDT Appointment [facility] [address] [place], [place] [address] Ellie Nava MD [address] [place] [address] documented as of this encounter Visit Diagnoses Diagnosis Senile osteoporosis- Primary documented in this encounter Care Teams Draw Bench Operator Helper Relationship Specialty Start Date End Date None, Provider, PCP - General 08/19/19 02/12/23 Abdulaziz Neil DO [address] [facility] [address] [place], [place] [id number] PCP - General INTERNAL MEDICINE 02/13/23 documented as of this encounter
--- OUTSIDE RECORDS SUMMARY | 2024-12-30 13:37 | XMS_ITS | Referral Summary ---
Author Organization [facility] 1 Address [facility] [place] [address] Care Team Providers Care Dredging Inspector Name Role Phone Kelly Stiles NP Primary Care Provider [phone] Social History Tobacco Use Types Packs/Day Years Used Date Smoking Tobacco: Never Assessed Personal Safety Answer Date Recorded Getting School Help Needed Not on file 05/05 Comments Unknown Sex and Gender Information Value Date Recorded Sex Assigned at Not on file Legal Sex Female 12:00 AM GAS LEAK INSPECTOR HELPER Gender Identity Not on file Sexual Orientation Not on file Plan of Treatment Not on file Insurance MEDICARE [employer] SENIOR SUPPLEMENT Care Teams Dredging Inspector Relationship Specialty Start Date End Date Kelly Stiles NP [facility] [facility] [address] [place] [address] [place] [id number] PCP - General Internal Medicine 05/06/24
--- OUTSIDE RECORDS SUMMARY | 2024-12-30 13:37 | XMS_ITS | Encounter Summary ---
Author Organization [facility] Address [address] [place] [address] Care Team Providers Care Screw Machine Adjuster Automatic Name Role Phone Abdulaziz Neil DO Primary Care Provider [phone] Encounter Details Date Type Department Care Team (Late st Contact Info) Description 06/10/2024 Therapy Plan [facility] Day [facility] [address] [place] [address] Ellie Nava MD [address] [place] [address] Social History Tobacco Use Types Packs/Day Years Used Date Smoking Tobacco: Never Smokeless Tobacco: Never Alcohol Use Standard Drinks/Week Comments Not Currently 0 (1 standard drink = 0.6 oz pur e alcohol) Comments No Sex and Gender Information Value Date Recorded Sex Assigned at Not on file Legal Sex Female 5:35 PM CDT Gender Identity Female 10/26/2021 4:46 AM FIELD MANAGER Sexual Orientation Straight 10/26/2021 4: 46 AM FIELD MANAGER documented as of this encounter Plan of Treatment Upcoming Encounters Date Type Department Care Team (Late st Contact Info) Description 01/03/2025 1:30 PM CDT Appointment [facility] [address] [place], [place] [id number] Ellie Nava MD [address] [place] [address] documented as of this encounter Visit Diagnoses Diagnosis Senile osteoporosis- Primary documented in this encounter Care Teams Screw Machine Adjuster Automatic Relationship Specialty Start Date End Date Abdulaziz Neil DO [address] [facility] [address] [place] [address] PCP - General INTERNAL MEDICINE 02/13/23 documented as of this encounter
--- OUTSIDE RECORDS SUMMARY | 2024-12-30 13:37 | XMS_ITS | Clinical Summary ---
Author Organization [facility] [place] Address [address] [place] [address] Phone Care Team Providers Care Waiter/Waitress Second Class Name Role Phone Unavailable Primary Care Provider Unavailabl e Allergies Active Allergy Reactions Criticality Noted Date Comments Ciprofloxacin Other (See Comments) 03/16/2010 Can't remember which med causes shortness of breath and the other one causes a rash Sulfamethoxazole-Trimeth oprim Other (See Comments) 03/16/2010 One med causes shortness of breath and the med causes a rash Medications levothyroxine 88 mcg tablet Take 88 mcg by mouth daily. Active loratadine (CLARITIN RediTabs) 10 mg Tablet, Rapid Dissolve Place 10 mg inside cheek daily. Active Active Problems Patient Care Coordination No te Formatting of this note migh t be different from the original. Primary Care: No primary provider on file. Referring Provider: Ellie Watkins [address] [place] [address] Other: Problem Noted Date Diagnosed Date Lump or mass in breast 03/16/2010 Hypothyroid Encounters Date Type Department Care Team Description 12/15/2024 External Device Data STL ABSTRACTION Provider, Abstract 12/07/2024 External Device Data STL ABSTRACTION Provider, Abstract 12/07/2024 External Device Data STL ABSTRACTION Provider, Abstract 12/04/2024 External Device Data STL ABSTRACTION Provider, Abstract 12/03/2024 External Device Data STL ABSTRACTION Provider, Abstract 11/30/2024 External Device Data STL ABSTRACTION Provider, Abstract 11/17/2024 External Device Data STL ABSTRACTION Provider, Abstract 11/16/2024 External Device Data STL ABSTRACTION Provider, Abstract 10/19/2024 External Device Data STL ABSTRACTION Provider, Abstract 10/12/2024 External Device Data STL ABSTRACTION Provider, Abstract 10/05/2024 External Device Data STL ABSTRACTION Provider, Abstract from Last 3 Months Family History Medical History Relation Name Comments Heart Disease Brother 1 No Known Problems Brother 2 Heart Disease Father Heart Disease Mother No Known Problems Son Relation Name Status Comments Brother 1 Alive Brother 2 Alive Father Mother Son Alive Social History Tobacco Use Types Packs/Day Years Used Date Smoking Tobacco: Never Tobacco Cessation:Counseling Given: Not Answered Alcohol Use Standard Drinks/Week Comments Yes 0 (1 standard drink = 0.6 oz pur e alcohol) occasionally Comments Unknown Sex and Gender Information Value Date Recorded Sex Assigned at Not on file Legal Sex Female 5:53 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 Gender Identity Not on file Sexual Orientation Not on file Last Filed Vital Signs Vital Sign Reading Time Taken Comments Blood Pressure 132/87 07/01/2024 2:12 PM CDT Pulse 72 07/01/2024 2:12 PM CDT Temperature 36.6 C (97.8 F) 07/01/2024 2:12 PM CDT Respiratory Rate 16 07/01/2024 2:12 PM CDT Oxygen Saturation 98% 07/01/2024 2:12 PM CDT Inhaled Oxygen Concentration - - Weight 74.8 kg (165 lb) 07/01/2024 2:12 PM CDT Height 172.7 cm (5' 8 ) 06/17/2024 10:27 AM CDT Body Mass Index 25.09 06/17/2024 10:27 AM CDT Plan of Treatment Upcoming Encounters Date Type Department Care Team (Late st Contact Info) Description 12/30/2024 2:30 PM CDT Office Visit [facility] Oncology and Hematology - [place] [address] [place] [address] Jcarlos Cervantes MD [address] [facility] [address] [place] [address] Health Maintenance Due Date Last Done Comments Pre-Diabetes and Diabetes Screening 1959 DTAP/TDAP/TD VACCINES (1 - Tdap) 1978 Traditional Medicare (ACO) A nnual Wellness Visit 1978 FIT-DNA Q 3 years 2004 FIT/FOBT Q 1 year 2004 Flex Sig/CT Colonography Q 5 years 2004 PNEUMOCOCCAL VACCINE 50+ YEA RS (1 of 1 - PCV) 2009 ZOSTER VACCINE (1 of 2) 2009 COLORECTAL SCREENING 08/29/2022 08/29/2012 Colorectal Cancer Screening 08/29/2022 INFLUENZA VACCINE (#1) 2024 BREAST CANCER SCREENING 12/29/2024 12/30/19 24, 12/30/2023, 11/19/2022, Additional history exists RSV VACCINE (60+ or ) (1 - 1-dose 75+ series) 2034 OSTEOPOROSIS SCREENING Completed 4, 11/21/2023, 11/19/2022, Additional history exists Procedures Procedure Name Priority Date/Time Associated Diagnosis Comments MAMMO DIAGNOSTIC BILATERAL W OR WO CAD Routine 03/09/2010 from Last 3 Months or Most Recently Relevant to Health Maintenance Results * MAMMO DIGITAL DIAG BILAT (03/09/2010) Anatomical Region Laterality Modality Breast Bilateral Other Ellie Watkins MD MAMMO ORDERABLES Final Resu lt from Last 3 Months or Most Recently Relevant to Health Maintenance Insurance MEDICARE PART A AND B AETNA MEDICARE SUPP AESSI
[2024-12-30 15:52] LABS: Alanine Aminotransferase 23 U/L (6-35); Albumin Level 4.5 g/dL (3.5-5.1); Alkaline Phosphatase 43 U/L (38-126); Anion Gap 9 mmol/L (4-12); Aspartate Amino Transferase 33 U/L (14-36); Bilirubin,Total 0.6 mg/dL (0.2-1.3); Blood Urea Nitrogen 21 mg/dL (7-17); Calcium 9.5 mg/dL (8.4-10.2); Carbon Dioxide 30 mmol/L (22-30); Chloride 103 mmol/L (98-107); Estimated Glomerular Filt Rate 60; Glucose 87 mg/dL (65-110); Sodium 142 mmol/L (137-145)
== END 2024-12-30 13:18 | disposition home or self-care (01) ==
LOC: ANHLAB 13:18
PROVIDERS: PCP Internal Medicine; Visit Provider Internal Medicine Hematology & Oncology
DX: D64.9 Anemia, unspecified (principal)
CPT/HCPCS: 36415; 80047; 80053; 85025

== ENCOUNTER 2025-01-10 09:57 | Outpatient (CLI) | payer MEDICARE, SELFPAY ==
--- OUTSIDE RECORDS SUMMARY | 2025-01-10 10:59 | XMS_ITS | Encounter Summary ---
Author Organization [facility] Address [address] [place] [address] Care Team Providers Care Senior Manager Mergers & Acquisitions Name Role Phone None, Provider Primary Care Provider Abdulaziz Mcgowan DO Primary Care Provider [phone] Encounter Details Date Type Department Care Team (Late st Contact Info) Description 11/21/2021 Therapy Plan [facility] [address] [place] [address] Ellie Nava MD [address] [place] [address] Social History Tobacco Use Types Packs/Day Years Used Date Smoking Tobacco: Never Assessed Comments Unknown Sex and Gender Information Value Date Recorded Sex Assigned at Not on file Legal Sex Female 5:35 PM CDT Gender Identity Female 10/26/2021 4:46 AM RETAIL CUSTODIAL ASSOCIATE Sexual Orientation Straight 10/26/2021 4: 46 AM RETAIL CUSTODIAL ASSOCIATE COVID-19 Exposure Response Date Recorded In the last month, have you been in contact with someone who was confirmed or suspected to have Coronavirus / COVID-19? No / Unsure 10/25/2021 6:57 PM RETAIL CUSTODIAL ASSOCIATE documented as of this encounter Plan of Treatment Not on file documented as of this encounter Visit Diagnoses Diagnosis Senile osteoporosis- Primary documented in this encounter Care Teams Senior Manager Mergers & Acquisitions Relationship Specialty Start Date End Date None, Provider, PCP - General 08/19/19 02/12/23 Abdulaziz Neil, [address] [place] [address] [address] [place] [address] PCP - General INTERNAL MEDICINE 02/13/23 documented as of this encounter
--- OUTSIDE RECORDS SUMMARY | 2025-01-10 10:59 | XMS_ITS | Referral Summary ---
Author Organization [facility] Medical Office Building 1 Address [facility] [place] [address] Care Team Providers Care Driver Helper Name Role Phone Kelly Stiles NP Primary Care Provider [phone] Social History Tobacco Use Types Packs/Day Years Used Date Smoking Tobacco: Never Assessed Personal Safety Answer Date Recorded Getting School Help Needed Not on file 05/05 Comments Unknown Sex and Gender Information Value Date Recorded Sex Assigned at Not on file Legal Sex Female 12:00 AM RATING EXAMINER Gender Identity Not on file Sexual Orientation Not on file Plan of Treatment Not on file Insurance MEDICARE AETNA SENIOR SUPPLEMENT Care Teams Driver Helper Relationship Specialty Start Date End Date Kelly Stiles NP [facility] [facility] [address] [place] [address] PCP - General Internal Medicine 05/06/24
--- OUTSIDE RECORDS SUMMARY | 2025-01-10 10:59 | XMS_ITS | Clinical Summary ---
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
--- OUTSIDE RECORDS SUMMARY | 2025-01-10 10:59 | XMS_ITS | Clinical Summary ---
Author Organization [facility] Address [address] [place] [address] Care Team Providers Care Adjuster Piano Action Name Role Phone Abdulaziz Neil DO Primary Care Provider [phone] Allergies Active Allergy Reactions Criticality Noted Date Comments Ciprofloxacin Rash Medium 02/13/2023 Sulfamethoxazole-Trimethoprim Rash Medium 2022 Medications levothyroxine (SYNTHROID) 88 MCG tablet Take 1 tablet (88 mcg total) by mouth every morning. Active Active Problems Problem Noted Date Diagnosed Date Senile osteoporosis 11/21/2021 Encounters Date Type Department Care Team Description 01/04/2025 10:28 AM CDT - 01/04/2025 2:37 PM CDT Hospital Encounter [facility] [address] [place] [address] Emil Mercado MD Discharge Disposition: Home or Self Care (Routine Discharge) 01/04/2025 Travel 01/03/2025 1:13 PM CDT - 01/03/2025 11:59 PM CDT Hospital Encounter [facility] [address] [place] [address] Emil Mercado MD Discharge Disposition: Home or Self Care (Routine Discharge) 01/03/2025 Travel 11/29/2024 10:11 AM STUBBER - 11/29/2024 11:59 PM STUBBER Hospital Encounter [facility] [address] [place] [address] Emil Mercado MD Discharge Disposition: Home or [...] CDT Gender Identity Female 10/26/2021 4:46 AM STUBBER Sexual Orientation Straight 10/26/2021 4: 46 AM STUBBER Last Filed Vital Signs Vital Sign Reading Time Taken Comments Blood Pressure 127/69 07/05/2024 8:01 AM CDT Pulse 74 07/05/2024 8:01 AM CDT Temperature 36.3 C (97.4 F) 01/04/2025 9:45 AM CDT Respiratory Rate 16 07/05/2024 8:01 AM CDT Oxygen Saturation 98% 07/05/2024 8:01 AM CDT Inhaled Oxygen Concentration - - Weight 68 kg (150 lb) 02/13/2023 7:48 AM CDT Height 172.7 cm (5' 8 ) 02/13/2023 7:48 AM CDT Body Mass Index 22.81 02/13/2023 7:48 AM CDT Plan of Treatment Health Maintenance Due Date Last Done Comments Hepatitis C 1977 Zoster Vaccines (1 of 2) 2009 Colorectal Cancer Screening Colonoscopy (10 Years) 08/29/2022 08/29/2012 COVID-19 Vaccine ( - 2023- season) 2024 Pneumococcal Vaccine: 50+ Years (1 of 1 - PCV) 2024 Mammogram Screening 01/03/2027 01/03/2025, 12/30/2023, 11/19/2022, Additional history exists DTaP, Tdap and Td [...] 5 Years) and At-Risk Patients (6 to 49 Years) Aged Out No longer eligible based on patient's age to complete this topic RSV Immunizations Under 20 Months Aged Out No longer eligible based on patient's age to complete this topic Procedures Procedure Name Priority Date/Time Associated Diagnosis Comments MG SCREENING W LORY FINESSE DIGI Routine 01/03/2025 1:34 PM CDT Encounter for screening mammogram for malignant neoplasm of breast BONE DENSITY/DEXA Routine 11/29/2024 10: 38 AM STUBBER Postmenopausal COLONOSCOPY Routine 08/29/2012 12:00 AM STUBBER from Last 3 Months or Most Recently Relevant to Health Maintenance Results * MG SCREENING W LORY FINESSE DIGI (01/03/2025 1:34 PM CDT) Anatomical Region Laterality Modality Breast Bilateral Mammography 01/06/2025 1:51 PM CDT Impressions 01/06/2025 1:52 PM CDT IMPRESSION: 1. Stable mammographic appearance with no new findings to suggest malignancy in either breast. Assessment: ACR BI-RADS 2 - BENIGN FINDING(S) Recommendation: 1:Routine Screening Bilateral Comments: Ordered By: EMIL MERCADO Interpreted By: Daniel Huitron MD, 01/06/2025 1:51 PM Narrative 01/06/2025 1:52 [place] [address] Examination: Digital bilateral screening mammogram with 3-D tomosynthesis Exam Date/Time: 01/03/2025 1:23 PM Reason For Exam: Encounter for screening mammogram for malignant neoplasm of breast Comparison: Priors including December 2023, October 2022, September 2021. Technique: Digital screening mammography of both breasts was performed in addition to 3-D Tomosynthesis technique. This study was read with the assistance of a computer-aided detection system. Tissue density: The breasts are heterogeneously dense, which may obscure small masses. Findings: There is no focal asymmetry, dominant mass lesion, area of skin thickening, or cluster of suspicious appearing calcifications to suggest malignancy. us Emil Mercado MD MAMMO Final Resul t * BONE DENSITY/DEXA (11/29/2024 10:38 AM STUBBER) Anatomical Region Laterality Modality Bone Bone Density 11/29/2024 10:3 3 AM STUBBER Impressions 11/29/2024 10:35 AM STUBBER IMPRESSION: 1. WHO Classification: Osteopenia. 2. Significant [...] 11/29/2024 10:33 AM Narrative 11/29/2024 10:35 AM STUBBER [facility] [address] [place] [address] EXAMINATION: BONE DENSITY/DEXA INDICATIONS: Asymptomatic menopausal state [...] Procedure Note Bryce Sandoval MD - 11/29/2024 [place] [address] EXAMINATION: BONE DENSITY/DEXA INDICATIONS: Asymptomatic menopausal state [...] Interpreted By: Bryce Sandoval, 11/29/2024 10:33 AM Emil Mercado MD DEXA Final Resul t * Colonoscopy (08/29/2012 12:00 AM STUBBER) 08/29/2012 08/29/2012 Narrative [facility] TO EPIC CONVERSION - 08/29/2012 12:00 AM STUBBER Documented hx of procedure Procedure Note , Generic ConversionMD - 08/02/2018 Documented hx of procedure us Lavon Isbell Md, MD GI PROCEDURE ORDERABLES Final Result [facility] TO EPIC CONVERSION from Last 3 Months or Most Recently Relevant to Health Maintenance Insurance [facility] MEDICARE AETNA Care Teams Adjuster Piano Action Relationship Specialty Start Date End Date Abdulaziz Neil DO [address] [facility] [address] [place] [address] PCP - General INTERNAL MEDICINE 02/13/23
--- OUTSIDE RECORDS SUMMARY | 2025-01-10 10:59 | XMS_ITS | Clinical Summary ---
[facility] [place] Address [address] [place] [address] Phone Care Team Providers Care Media Marketing Director Name Role Phone Unavailable Primary Care Provider [...] primary provider on file. Referring Provider: Ellie Watkisn [address] [place] [address] Other: Problem Noted Date Diagnosed Date Lump or mass in breast 03/16/2010 Hypothyroid Encounters Date Type Department Care Team Description 12/31/2024 Orders Only [facility] Oncology and Hematology - Juan [address] [place] [address] Jcarlos Cervantes MD 12/30/2024 2:30 PM CDT Office Visit [facility] Oncology and Hematology - [place] [address] [place] [address] Jcarlos Cervantes MD Primary thrombocytopenia (CMS/HCC) (Primary Dx) 12/30/2024 Orders Only [facility] Oncology and Hematology - Juan [facility] [address] [place] [address] Jcarlos Cervantes MD 12/15/2024 External Device Data STL ABSTRACTION Provider, [...] on file Legal Sex 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 Gender Identity Not on file Sexual Orientation Not on file Last Filed Vital Signs Vital Sign Reading Time Taken Comments Blood Pressure 149/90 12/30/2024 2:40 PM CDT Pulse 72 12/30/2024 2:38 PM CDT Temperature 36.9 C (98.4 F) 12/30/2024 2:38 PM CDT Respiratory Rate 16 12/30/2024 2:38 PM CDT Oxygen Saturation 96% 12/30/2024 2:38 PM CDT Inhaled Oxygen Concentration - - Weight 74.3 kg (163 lb 12.8 oz) 12/30/2024 2:38 PM CDT Height 172.7 cm (5' 8 ) 06/17/2024 10:2 7 AM CDT Body Mass Index 24.91 06/17/2024 10:27 AM CDT Plan of Treatment Upcoming Encounters Date Type Department Care Team (Late st Contact Info) Description 01/02/2026 11:00 AM CDT Office Visit [facility] Oncology and Hematology [facility] [address] [place] [address] Jcarlos Cervantes MD [address] [facility] [address] [place] [address] Health Maintenance Due Date Last Done Comments DTAP/TDAP/TD VACCINES (1 - Tdap) 1978 FIT-DNA Q 3 years 2004 FIT/FOBT [...] 1-dose 75+ series) 2034 OSTEOPOROSIS SCREENING Completed 5, 11/29/2024, 11/21/2023, Additional history exists Procedures Procedure Name Priority Date/Time Associated Diagnosis Comments COMPREHENSIVE METABOLIC PANEL Routine 12/31/2024 11:24 AM CDT BASIC METABOLIC PANEL Routine 12/30/2024 4:14 PM CDT CBC MIXED CELL DIFFERENTIAL Routine 12/30/2024 4:07 PM CDT MAMMO DIAGNOSTIC BILATERAL W OR WO CAD Routine 03/09/2010 from Last 3 Months or Most Recently Relevant to Health Maintenance Results * COMPREHENSIVE METABOLIC PANEL (12/31/2024 11:24 AM CDT) Blood us Jcarlos Cervantes MD CHEMISTRY ORDERABLES Final Resu lt * BASIC METABOLIC PANEL (12/30/2024 4:14 PM CDT) Blood Jcarlos Cervantes MD CHEMISTRY ORDERABLES Final Resu lt * CBC MIXED CELL DIFFERENTIAL (12/30/2024 4:07 PM CDT) Blood Jcarlos Cervantes MD HEMATOLOGY ORDERABLES Final Res ult * MAMMO DIGITAL DIAG BILAT (03/09/2010) Anatomical Region Laterality Modality Breast Bilateral Other Ellie Watkins MD MAMMO ORDERABLES Final Resu lt from Last 3 Months or Most Recently Relevant to Health Maintenance Insurance MEDICARE PART A AND B AETNA MEDICARE SUPP AESSI
--- OUTSIDE RECORDS SUMMARY | 2025-01-10 10:59 | XMS_ITS | Encounter Summary ---
Author Organization [facility] Address [address] [place] [address] Care Team Providers Care City Constable Name Role Phone Abdulaziz Neil DO Primary Care Provider [phone] Encounter Details Date Type Department Care Team (Late st Contact Info) Description 06/10/2024 Therapy Plan [facility] [address] [place] [address] Ellie Nava MD [address] [place] [address] Social History Tobacco Use Types Packs/Day Years Used Date Smoking Tobacco: Never Smokeless Tobacco: Never Alcohol Use Standard Drinks/Week Comments Not Currently 0 (1 standard drink = 0.6 oz pur e alcohol) Comments No Sex and Gender Information Value Date Recorded Sex Assigned at Not on file Legal Sex Female 5:35 PM CDT Gender Identity Female 10/26/2021 4:46 AM MECHANIC INSULATOR Sexual Orientation Straight 10/26/2021 4: 46 AM MECHANIC INSULATOR documented as of this encounter Plan of Treatment Not on file documented as of this encounter Visit Diagnoses Diagnosis Senile osteoporosis- Primary documented in this encounter Care Teams City Constable Relationship Specialty Start Date End Date Abdulaziz Neil DO [address] [facility] [address] [place] [address] PCP - General INTERNAL MEDICINE 02/13/23 documented as of this encounter
--- NOTE | 2025-01-25 15:47 | WPDHOLTEREM ---
Holter/Event Monitor Holter/Event Monitor Date of procedure: 01/10/25 Holter/Event Procedure: 3-7 Day Holter Monitor Indications: Tachycardia Conclusion: 1. 7 day holter monitor on 01/10/25. 2. Predominant rhythm is sinus rhythm. HR range 46-141 bpm; average 72 bpm. HR at 46 bpm was on 01/12/25 at 11:38 pm. 3. There are frequent premature supraventricular complexes at 12% burden, rare supraventricular couplets. There are 69 episodes of atrial tachycardia with fastest at 141 bpm and longest lasting 37 seconds. 4. There are rare premature ventricular complexes and longest ventricular bigeminy was 4 seconds. No ventricular tachycardia. 5. No significant pauses greater than 3 seconds. 6. Patient reports 2 episodes of symptoms of flutter/racing which demonstrate atrial tachycardia with HR at 115-138 bpm.
== END 2025-01-10 09:58 | disposition home or self-care (01) ==
PROVIDERS: PCP Internal Medicine; Visit Provider Nurse Practitioner
DX: I49.1 Atrial premature depolarization (principal); I47.19 Other supraventricular tachycardia; I49.3 Ventricular premature depolarization; R00.8 Other abnormalities of heart beat
CPT/HCPCS: 93242

== ENCOUNTER 2025-03-15 08:20 | Outpatient (CLI) | payer MEDICARE, SELFPAY ==
--- OUTSIDE RECORDS SUMMARY | 2025-03-15 08:34 | XMS_ITS | Clinical Summary ---
Author Organization [facility] Medical Office Building 1 Address [address] [place] [address] Care Team Providers Care Open Hearth Worker Name Role Phone Kelly Stiles NP Primary Care Provider [phone] Social History Tobacco Use Types Packs/Day Years Used Date Smoking Tobacco: Never Assessed Personal Safety Answer Date Recorded Getting School Help Needed Not on file 05/05 Comments Unknown Sex and Gender Information Value Date Recorded Sex Assigned at Not on file Legal Sex Female 12:00 AM LARD MAKER Gender Identity Not on file Sexual Orientation [...] B Screening Completed 11/19/2020, [address] [place] [address] AETNA SENIOR SUPPLEMENT Care Teams Open Hearth Worker Relationship Specialty Start Date End Date Kelly Stiles NP [facility] [facility] [place] [address] PCP - General Internal Medicine 05/06/24
--- OUTSIDE RECORDS SUMMARY | 2025-03-15 08:34 | XMS_ITS | Patient Health Record ---
Author Organization [facility] Address [address] [facility] [address] [address] Support Name Relationship Address Phone Clarisse Wilder Guarantor Unknown [phone] Reason For Referral No Information Plan Of Treatment No Information Insurance Providers Payer Name Payer Address Payer Phone Subscriber Number Group Number Insured Name Patient Relationship to Insured Coverage Start Date Coverage End Date [facility] Choice [employer] E2 [address] [address] [place] [address] [id number] Clarisse Wilder Self - patient is the insured
--- OUTSIDE RECORDS SUMMARY | 2025-03-15 08:34 | XMS_ITS | Referral Summary ---
Author Organization [facility] Medical Office Building 1 Address [facility] [place] [address] Care Team Providers Care Scientist Engineer Name Role Phone Kelly Stiles NP Primary Care Provider [phone] Social History Tobacco Use Types Packs/Day Years Used Date Smoking Tobacco: Never Assessed Personal Safety Answer Date Recorded Getting School Help Needed Not on file 05/05 Comments Unknown Sex and Gender Information Value Date Recorded Sex Assigned at Not on file Legal Sex Female 12:00 AM TELEPHONE SEX WORKER Gender Identity Not on file Sexual Orientation Not on file Plan of Treatment Not on file Insurance MEDICARE AETNA SENIOR SUPPLEMENT Care Teams Scientist Engineer Relationship Specialty Start Date End Date Kelly Stiles NP [facility] [facility] [address] [place] [address] PCP - General Internal Medicine 05/06/24
--- OUTSIDE RECORDS SUMMARY | 2025-03-15 08:34 | XMS_ITS | Clinical Summary ---
[facility] [place] [address] Address [address] [place] [phone] Phone Care Team Providers Care Roll Icer Machine Name Role Phone Unavailable Primary Care Provider [...] provider on file. Referring Provider: Ellie Watkins [address] [place] [address] Other: Problem Noted Date Diagnosed Date Lump or mass in breast 03/16/2010 Hypothyroid Encounters Date Type Department Care Team Description 02/22/2025 External Device Data STL ABSTRACTION Provider, Abstract 02/15/2025 External Device Data STL ABSTRACTION Provider, Abstract 12/31/2024 Orders Only [facility] Oncology and Hematology - [address] [place] [address] Jcarlos Cervantes MD 12/30/2024 2:30 PM CDT Office Visit [facility] On[facility] Hematology - [address] [place] [address] Jcarlos Cervantes MD Primary thrombocytopenia (CMS/HCC) (Primary Dx) 12/30/2024 Orders Only [facility] Oncology and Hematology - [address] [place] [id number] Jcarlos Cervantes MD 12/15/2024 External Device Data [...] on file Legal Sex 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 Gender Identity Not on file Sexual Orientation [...] 2:38 PM CDT Height 172.7 cm (5' 8) 06/17/2024 10:2 7 AM CDT Body Mass Index 24.91 06/17/2024 10:27 AM CDT Plan of Treatment Upcoming Encounters Date Type Department Care Team (Late st Contact Info) Description 01/02/2026 11:00 AM CDT Office Visit [facility] Oncology and Hematology - [address] [place] [address] Jcarlos Cervantes MD [facility] [address] [place] [id number] Health Maintenance Due Date Last Done [...] 12/30/19 24, 12/30/2023, 11/19/2022, Additional history exists OSTEOPOROSIS SCREENING 11/29/2029 , 11/29/2024, 11/21/2023, Additional history exists RSV VACCINE (60+ or ) (1 - 1-dose 75+ series) 2034 Procedures Procedure Name Priority Date/Time Associated Diagnosis [...] CELL DIFFERENTIAL (12/30/2024 4:07 PM CDT) Blood us Jcarlos Cervantes MD HEMATOLOGY ORDERABLES Final Res ult * MAMMO DIGITAL DIAG BILAT (03/09/2010) Anatomical Region Laterality Modality Breast Bilateral Other us Ellie Watkins MD MAMMO ORDERABLES Final Resu lt from Last 3 Months or Most Recently Relevant to Health Maintenance Insurance MEDICARE PART A AND B [employer] MEDICARE SUPP AESSI
--- NOTE | 2025-03-29 20:52 | P.SLEEP_ITS ---
Sleep Study - Home Unattended Date of Study: 03/15/25 Ordering Provider: Shay Dickerson DO Interpreting Provider: Esther Reeves DO Home Sleep Study Type: Watch PAT Height: 1.74 m Weight: 73.482 kg Body Mass Index: 24.3 Neck Circumference (inches): 14 Gustine: 10 Reason for Sleep Study Trouble falling asleep Sleep History The patient is a 64-year-old female who had a sleep study ordered by her yeast stacker for evaluation of sleep apnea. The patient admits to having difficulty falling asleep. She denies snoring loudly. She denies interruptions in breathing while asleep. She denies choking or gasping at night. She denies having trouble breathing on her back. She denies morning headaches. She denies having a dry or sore mouth/throat in the morning. She denies nocturnal heartburn. She urinates twice throughout the night. She denies having difficulty staying asleep. She does have difficulty returning to sleep if she wakes up throughout the night. She denies any hypnotic or sedative use. She denies feelin g anxious about sleep. She denies feeling tired or sleepy during the day. She does feel tired in the morning. She does have the urge to fall asleep during the day. She does feel drowsy while driving. She denies sleep paralysis, cataplexy, and hypnagogic/hypnopompic hallucinations. She does clench or grind her teeth. She denies kicking or jerking her legs excessively. She denies having a restless feeling in her legs. She goes to bed at 10 p.m. on workdays and at 10 p.m. on her days off. It takes her 15 minutes to fall asleep. She gets 7 hours of sleep on workdays and 7.5 hours of sleep on her days off. Her sleep is a little restorative on days off. She does take planned naps in the afternoon that are less than 1 hour. She denies dream enactment behavior. She denies sleepwalking. She consumes 1 to 2 cups of a caffeinated beverage per day. She denies tobacco use. She has one alcoholic beverage 1 to 2 nights per week. She exercises 3 to 4 nights per week. FORMERLY [facility] Past Medical History Medical History Cyst of breast Removed: benign H/O human papillomavirus infection Osteoporosis History of fracture Hypothyroidism Surgical History Surgical History History of incisional hernia repair 05/15/23 Repair incisional hernia with 5 mm defect H/O laparoscopy 1991 History of appendectomy 1969 Family History Family History Sibling Hypertension History of heart artery stent Father Heart disease Mother Pacemaker Social History Social History Smoking status: Never smoker Alcohol intake: current Alcohol use details: 1 per month Lack of Transportation: No Lack of Food: Never True Current Housing: I Have Housing Concerned About Future Housing: No Difficulty Paying Gas/Electric Bills: No Difficulty Paying for Meds: No Currently Unemployed: No Education: Bachelor's Degree Difficulty w/ Childcare or Family Care: No Living arrangements: alone Spiritual care concerns: No Medications Home Medications ?Medication ?Instructions ?Recorded ?Confirmed ?Type [id number]-[id number] 1 tablet PO DAILY 11/01/19 02/17/25 History tablet (Multivitamin 50 Plus tablet) denosumab 60 mg/mL subcutaneous See Rx Instructions .Route .COMPLEX 01/14/22 02/17/25 History syringe (Prolia) omega-3 fatty acids 1,000 mg 1,000 mg PO BID 12/17/23 02/17/25 History capsule Lact no.21-Bifido no.7-inulin 1 cap PO DAILY 06/03/24 02/17/25 History [Fortify Probiotic 50 Plus] [id number] PO 06/03/24 02/17/25 History [Chester (with collagen)] loratadine 10 mg tablet (Allergy 10 mg PO DAILY 12/09/24 02/17/25 History Relief (loratadine)) levothyroxine 88 mcg tablet 88 mcg PO DAILY #90 tabs 02/16/25 02/17/25 Rx metoprolol succinate 25 mg 12.5 mg (1/2 x 25 mg) PO DAILY #45 02/17/25 02/17/25 Rx tablet,extended release 24 hr tabs Sleep Procedure The sleep study was completed using [employer] a technically adequate device with seven channels: peripheral arterial tone, actigraphy, body position, snore, respiratory movement, pulse oximetry, sleep staging, and heart rate. Prior to using the device, the patient received verbal and written instructions for its application and was provided with the help desk phone number for additional telephonic instruction with 24-hour availability of qualified personnel to answer questions. The study was scored using CMS guidelines. Sleep Architecture The total recording time is 8 hrs, 13 min. The total sleep time is 7 hrs, 20 min. Sleep latency is 19 minutes. REM latency is 66 minutes. The patient had 7 episodes of waking. Sleep architecture shows 12.8% deep sleep, 74.9% light sleep, and (as % Total Sleep Time) showed NREM (Light 74.9%; Deep 12.8%), and a 12.3% stage REM. The patient spent 38.8% of total sleep time in the supine position. Sleep efficiency was 89.25. Respiratory Analysis The overall AHI (pAHI 4%:) is 4.2. The overall AHI (pAHI 3%:) is 14.5. The central AHI is 0.1. The AHI was 13.3 in NREM and 23.7 in REM sleep. The AHI was 23.0 in Supine and 9.1 in Non-supine sleep. Percent of Moisés Berry respirations is 0.0. Oximetry Data The oxygen desaturation index (SHANTELLE 4%:) is 3.9. The mean saturation is 93%, and the lowest saturation is 87%. Time spent with saturation < 88% is 0.0 minutes. Snoring Profile Snoring average intensity is 45 dB. The patient snored above 45 decibels for 136.1 minutes, 30.9% of sleep time. Cardiac Profile The average pulse rate is 60 beats per minutes. The lowest pulse rate is 44 bpm. The highest pulse rate reported is 109 bpm. Suspected Afib total duration is 3:44:45, (h:m:sec). The longest Afibevent duration is 0:12:15. Premature beats occur 6.6 per minute. Assessment and Plan Assessment and Plan (1) Daytime hypersomnia: Code(s): G47.10 - Hypersomnia, unspecified Status: Acute Assessment and Plan: The patient had an overall AHI of 4.2 with desaturation down to 87%. This is not consistent with sleep-disordered breathing. Due to the severity of the patient's daytime hypersomnia, further evaluation is warranted. I recommend that the patient have a split study with the use of a hypnotic to ensure we obtain enough sleep data. Data The data obtained during this sleep study is adequate for interpretation. Certification This sleep study has been reviewed by a board certified sleep medicine physician.
[2025-03-29 21:26] VITALS: BMI 24.3
== END 2025-03-16 11:20 | disposition home or self-care (01) ==
LOC: ANHCSM 08:21
PROVIDERS: PCP Internal Medicine; Visit Provider Internal Medicine Cardiovascular Disease
DX: G47.10 Hypersomnia, unspecified (principal)
CPT/HCPCS: 95800